=== PATIENT | female | born 1990 | race Caucasian/White ===

== ENCOUNTER → 2021-11-16 | Day surgery (SDC) | payer OTHER ==
[~2021-11-16] VITALS: Ht 172.7 cm; Wt 59.9 kg
== END | disposition home or self-care (01) ==
LOC: ER 11-15 19:50 → CIR.AMB 09:09 → SEC-K 09:09 → ER 09:09 → CIR.AMB 09:09 → EDSTATUS 10:00 → SEC-K 11:46 → O/R 11:46
PROVIDERS: ATTEND General Practice
DX: O02.1 Missed abortion (principal); Z86.16 Personal history of COVID-19; F12.90 Cannabis use, unspecified, uncomplicated